=== PATIENT | male | born 1955 | race Two or more races ===

== ENCOUNTER 2018-08-13 20:53 | Inpatient (IN) | payer OTHER ==
[~2018-08-13] VITALS: Ht 167.6 cm; Wt 68.0 kg
[2018-08-13 20:56] VITALS: Ht 167.6 cm; Wt 68.0 kg
--- NOTE | 2018-08-13 21:06 | NUR ---
PT WHEELED TO ED BED 5 AFTER IV START IN H7.
--- NOTE | 2018-08-13 21:09 | NUR ---
DR QUIÑONES MADE AWARE THAT PT IS IN BED 5
--- NOTE | 2018-08-13 21:12 | NUR ---
PT C/O SLURRED SPEECH SINCE 1600. PT REPORTS THAT STARTING AROUND 1600, HIS MOUTH BECAME DRY, HE STARTED FEELING WEAK AND OFF-BALANCED. HE STS THAT HE WASTRYING TO SAY "LISA", AND COULD NOT SAY IT. AT BEDSIDE. STS THAT SHE CALL PT AT 1800, AND NOTICED THAT HIS SPEECH WAS SLURRED. BECAME WORRIED, GIVEN HX OF STROKE X2. STS THAT SHE CAME HOME TO TAKE HIM TO HOSPITAL. PT STS THAT HE FEELS THAT HIS SPEECH IS GETTING BETTER. NO PRONATOR DRIFT NOTED. SYMMETRICAL SMILE AND EYE BROW RAISE NOTED. FULL STRENGTH IN ALL 4 EXTREMETIES NOTED. PT REPORTS "A LITTLE" DECREASED SENSATION IN LEFT EXTREMETIES. STRONG PULSES IN ALL 4 EXTREMETIES NOTED. PT PLACED ON BOAT PULLER AND PULSE OX. RESPS E/U. AT BEDSIDE. CT NOTIFIED.
--- NOTE | 2018-08-13 21:25 | NUR ---
PT TAKEN TO CT VIA KARLA
--- NOTE | 2018-08-13 21:46 | NUR ---
X-RAY AT BEDSIDE
[2018-08-13 21:50] LABS: BASOPHIL % 0.5 % (0-2); PLATELET COUNT 188 x10^3mcL (130-400); RED CELL DISTRIBUTION WIDTH 13.5 % (11.5-14.5)
--- NOTE | 2018-08-13 21:51 | NUR ---
PT MEDICATED PER MD ORDER
[2018-08-13 21:57] LABS: CALCIUM 9.6 mg/dL (8.5-10.1); CARBON DIOXIDE 28.7 mmol/L (21-32); CHLORIDE SERUM 105 mmol/L (98-107); CREATININE SERUM 1.2 mg/dL (0.7-1.3); GFR1 > 60 mL/min; GLUCOSE SERUM 242 mg/dL (74-106); SODIUM SERUM 143 mmol/L (136-145)
[2018-08-13 22:03] LABS: ALKALINE PHOSPHATASE 115 U/L (46-116); ALT/SGPT 49 U/L (16-63); AST/SGOT 17 U/L (15-37); BILIRUBIN TOTAL 0.31 mg/dL (0.20-1.00); TOTAL PROTEIN, SERUM 6.3 g/dL (6.4-8.2)
[2018-08-13 22:04] LABS: ALBUMIN 3.3 g/dL (3.4-5.0)
[2018-08-13 22:08] LABS: microscopic required? NO
--- NOTE | 2018-08-13 22:10 | NUR ---
MEDICATION ADMINISTERED PER MD ORDER
[2018-08-13 22:24] LABS: UA SPECIFIC GRAVITY <=1.005 (1.005-1.035); urine erythrocyte NEGATIVE (NEGATIVE)
--- NOTE | 2018-08-13 22:41 | NUR ---
PT A&O X4, LAYING IN POSITION OF COMFORT. PT SPEAKING IN FULL SENTENCES, NO SLURRED SPEECH NOTED. PT REPORTS FEELING "MUCH BETTER." RESPS E/U. BED IN LOW AND LOCKED POSITION, 2 BED RAILS UP, CALL LIGHT W/IN REACH. SPOUSE AT BEDSIDE. AWAITING RESULTS.
--- NOTE | 2018-08-13 22:44 | NUR ---
PT TAKEN TO CT VIA KARLA
--- NOTE | 2018-08-13 23:10 | NUR ---
MEDICATION GIVEN PER MD ORDER
--- NOTE | 2018-08-13 23:32 | NUR ---
PT RESTING IN A POSITION OF COMFORT AT THIS TIME. AOX4, RESP EVEN AN DUNLABORED, NO ACUTE DISTRESS NOTED. PT REMAINS ON FULL CM.
[2018-08-14] VITALS (8 sets, daily range): BP systolic 142–194; BP diastolic 64–88
--- NOTE | 2018-08-14 00:06 | NUR ---
MEDICATION ADMINISTERED PER MD ORDER
--- NOTE | 2018-08-14 00:25 | NUR ---
PT AWAKE AND ALERT, LAYING IN POSITION OF COMFORT. PT REPORTS FEELING "MUCH BETTER." 2 BED RAILS UP, BED IN LOW AND LOCKED POSITION. RESPS E/U, NAD NOTED.
[2018-08-14] MEDS ORDERED: ASPIR 8181 MG PO (00:51)
[2018-08-14] MEDS ORDERED: CATAPRES0.1 MG PO (00:52)
[2018-08-14] MEDS ORDERED: METFORMIN HYDR500 M1 PO (00:52)
--- NOTE | 2018-08-14 01:51 | NUR ---
MEDICATION ADMINISTERED PER MD ORDER
--- NOTE | 2018-08-14 01:56 | NUR ---
PT AWAKE AND ALERT, LAYING IN POSITION OF COMFORT. RESPS E/U, NAD NOTED AT THIS TIME. CALL LIGHT W/IN REACH, SON AT BEDSIDE. AWAITING RM ASSIGNMENT.
--- NOTE | 2018-08-14 01:56 | NUR ---
PT AMBULATED TO RESTROOM W/ STEADY GAIT
[2018-08-14 02:05] LABS: CHOLESTEROL/HDL RATIO 3.7; PHOSPHOROUS 4.7 mg/dL (2.5-4.9)
[2018-08-14 02:15] LABS: FREE T4 1.8 ng/dL (0.76-1.46); FREE THYROXINE INDEX 4.7 ug/dL (1.4-4.5); T3 TOTAL 1.68 ng/mL; T4(THYROXINE) 11.7 ug/dL (4.7-13.3)
--- NOTE | 2018-08-14 02:15 | NUR ---
RECEIVED REPORT FROM HARRIETT MATHEWS FROM ED. ALL QUESTIONS AND CONCERNS ADDRESSED.
--- NOTE | 2018-08-14 02:16 | NUR ---
REPORT GIVEN TO STEPH LORENZANA
--- NOTE | 2018-08-14 02:26 | NUR ---
PT ARRIVED TO UNIT TO ROOM 204 BED B
--- NOTE | 2018-08-14 02:30 | NUR ---
PT IN RM 204 BED B. PT IS A/O X4, SPEECH IS CLEAR AND FOLLOWS COMMANDS. EYES OPEN SPONTANEOUSLY AND PUPILS REACT BRISK TO LIGHT. CHEST RISE AND FALL EQUAL AND UNLABORED AND LS CLEAR BILATERALLY. PT IS ON RA SATTING 97%. PT IS ABLE TO AMBULATED WITH MINIMAL ASSIST. 20G IV TO RT AC, PATENT AND FLUSHING WELL. FAMILY AT BEDSIDE AND GIVEN UPDATE ON PLAN OF CARE. BED LEFT IN THE LOWEST POSITION AND CALL LIGHT LEFT WITHIN REACH.
--- NOTE | 2018-08-14 05:50 | NUR ---
PT BP 204/[address] WATSON AWARE, ORDER TO GIVE 0900 CLONIDINE NOW
--- NOTE | 2018-08-14 07:06 | NUR ---
RECEIVED REPORT FROM RADHA LORENZANA. PT RESTING COMFORTABLY IN BED WITH AT BEDSIDE. SALINE LOCK TO RAC IS PATENT AND INTACT. NO REDNESS OR PAIN. TELE # [address] PT DENIES CHEST PAIN. PT ON ROOM AIR. NO C/O SOB AND NO DISTRESS NOTED. ALL QUESTIONS AND CONCERNS ADDRESSED.
--- NOTE | 2018-08-14 08:42 | NUR ---
IN TO SEE PATIENT AND ADMINISTER MEDICATION. METFORMIN HELD. PT HAD CT WITH CONTRAST. PT RESTING COMFORTABLY IN BED WITH AT BEDSIDE. ALL NEEDS MET.
[2018-08-14 09:07] LABS: AMPHETAMINE QUAL UR NONE DETECTED (See below)
--- NOTE | 2018-08-14 10:31 | NUR ---
TELE NEURO INITIATED AT THIS TIME. SPOKE WITH ALI AND PROVIDED ALL INFO REQUESTED. ATTENDING NURSE KIMBERLI MADE AWARE.
--- NOTE | 2018-08-14 10:34 | NUR ---
RECEIVED CALL FROM TELE NEURO REP REQUESTING H&P BE FAXED.
--- NOTE | 2018-08-14 10:35 | NUR ---
CONFIRMED OK TO SEND H&P TO TELE NEURO WITH PRINCIPAL DATABASE DEVELOPERHARRIETT RAMÍREZ. H&P SENT WITH COVERSHEET AND FACESHEET. CONFIRMATION MESSAGE RECEIVED.
--- NOTE | 2018-08-14 10:57 | NUR ---
TELE NEURO CONSULT COMPLETED WITH DR CHRIS DUNBAR. DISCUSSED POSSIBILITIES. STATED THAT CT SCAN REVEALED OLD STROKE AND THAT 1. HIGH BP MAY CAUSE OLD STROKE TO HAVE SYMPTOMS RESURFACE. OR 2. THIS MAY BE AN NEW STROKE AND SHE WOULD LIKE PT TO HAVE MRI IN ORDER TO FURTHER ASSESS. ALL SYSTEMS ASSESSED BY DOCTOR INCLUDING HOME MEDS AND MEDICATIONS GIVEN THIS HOSPITAL VISIT. DR LICONA SEND RECCOMENDATIONS. UPON COMPLETION DR PAREDES CAME IN AND WAS NOTIFIED OF DR DUNBAR RECCOMENDATION.
--- NOTE | 2018-08-14 11:49 | NUR ---
PATIENT HAVING ECHO NOW.
--- NOTE | 2018-08-14 11:55 | NUR ---
DIABETIC EDUCATION NURSE BIA IN TO SPEAK WITH PATIENT AND . ALL QUESTIONS AND CONCERNS ADDRESSED.
--- NOTE | 2018-08-14 14:38 | NUR ---
IN TO SEE PATIENT AND ASSESS NEEDS AFTER LUNCH. PT STATES HE IS FEELING WEEL AND WOULD LIKE TO GO HOME. DISCUSSED MRI AND AND WILL FOLLOW UP WITH RADIOLOGY TO SEE IF IT IS BEING COMPLETED TODAY. IF NOT PAT STATED THAT HE WOULD LIKE TO BE DISCHARGED AND HAVE MRI DONE OUTPATIENT. WILL NOTIFY DR PAREDES.
--- NOTE | 2018-08-14 15:26 | NUR ---
SPOKE WITH DR PAREDES TO NOTIFY THAT PT WAS INQUIRING ABOUT BEING DISCHARGED AND HAVING MRI DONE OUTPATIENT VS INPATIENT TOMORROW. DR PAREDES REQUESTED THAT I DISCUSS BOTH OPTIONS WITH PATIENT AND CALL HER BACK. PATIENT DISCUSING BOTH OPTIONS WITH HIS AND WILL GET BACK TO ME.
--- NOTE | 2018-08-14 16:08 | NUR ---
PT TO STAY IN THE HOSPITAL AND HAVE MRI INPATIENT TOMORROW. DR PAREDES NOTIFIED.
--- NOTE | 2018-08-14 16:26 | NUR ---
PAGE GATED DR PAREDES TO NOTIFY OF PT BP 176/77 AND PT ONLY HAS CLONIDINE FOR SBP <180.
--- NOTE | 2018-08-14 17:46 | NUR ---
SPOKE WITH DR PAREDES AND NOTIFIED OF PATIENT BP 176/77 WITH ONLY CLONIDINE FOR SBP <180. DR PAREDES STATED DO NOT GIVE CLONIDINE I WILL PLACE A NEW ORDER. AWAITING ORDER.
--- NOTE | 2018-08-14 19:25 | NUR ---
RECIEVED PT IN BED FROM DAY NURSE KIMBERLI, PT ASSESSED AT THIS TIME, HAS NO ACUTE DISTRESS AT THIS TIME, PT IS A/0X4 NO COMPLAINTS OF ROY OR DIZZINESS, PERRL, PT HAS NO COMLAINTS OF CHEST PAIN OR SOB, IV TO THE RAC SALINE LOCKED, TELE [address] NSR, SAFETY PRECAUTIONS IN PLACE, WILL CONTINUE TO MONITOR
--- NOTE | 2018-08-14 19:30 | NUR ---
REPORT GIVEN TO ELENA LORENZANA. PT RESTING COMFORTABLY IN BED NO DISTRESS NOTED. PT TO HAVE MRI TOMORROW. ALL QUESTIONS AND CONCERNS ADDRESSED. ALL CARES ENDORSED.
--- NOTE | 2018-08-14 20:01 | NUR ---
PT BP 194/84, CONTACTED DR REED, SAID TO GIVE THE LISINOPRIL AND PRN CLONADINE.
--- NOTE | 2018-08-14 21:18 | NUR ---
SPOKE TO BILLY OLIVER AND INQUIRED ABOUT MRI SCHEDULE TOMORROW 08/15, CHECKED IF THEY AREA AWARE AND IF TIMERS INSPECTOR IS INFORMED ABOUT IT. SHE CALLED MARY MORALES AND HE IS AWARE AND WILL BE HERE TOMORROW AROUNBD 1PM. WILL RELAY THIS TO CN.
--- NOTE | 2018-08-14 22:30 | NUR ---
PT RESTING COMFOTTABLY IN BED PLAYING ON PHONE, NO SIGNS OF ACUTE DISTRESS NOTED AT THIS TIME, SAFETY PRECAUTIONS IN PLACE WILL CONTINUE TO MONITOR
[2018-08-15] VITALS (7 sets, daily range): BP systolic 158–198; BP diastolic 69–92
--- NOTE | 2018-08-15 01:42 | NUR ---
PT A/0X4 NO COMPLAINTS OF ROY OR DIZZINESS, PERRL, NO SLURRED SPEACH, FOLLOWS COMMANDS, NO FACIAL ASYMETRY OR DROOP, SAFETY PRECAUTIONS IN PLACE, WILL CONTINUE TO MONITOR
--- NOTE | 2018-08-15 03:16 | NUR ---
CHECKED PT BLOOD PRESSURE DURING ROUNDS, WAS 168/74, CONTACTED DR REED, NO NEW ORDERS AT THIS TIME. WILL CONTINUE TO MONITOR
--- NOTE | 2018-08-15 05:12 | NUR ---
PT SLEPT THROUGH MOST OF THE NIGHT, THE PT REMAINED A/0X4 THROUGH SHIFT, PERRL DURING NEURO CHECKS, HAD NO COMPLAINTS OF ROY, DIZZINESS, SLURRING OF SPEECH, OR FACIAL DROOP/ASYMETRY. PT HAD NO EPISODES OF PAIN. SAFETY PRECAUTIONS WERE MAINTAINED THROUGH SHIFT, WILL CONTINUE TO MONITOR AND ENDORSE CARE TO ONCOMING DAY SHIFT RN
[2018-08-15 06:18] LABS: BASOPHIL % 0.3 % (0-2); PLATELET COUNT 187 x10^3mcL (130-400); RED CELL DISTRIBUTION WIDTH 13.2 % (11.5-14.5)
[2018-08-15 06:30] LABS: CALCIUM 9.4 mg/dL (8.5-10.1); CARBON DIOXIDE 25.9 mmol/L (21-32); CHLORIDE SERUM 106 mmol/L (98-107); CREATININE SERUM 1.2 mg/dL (0.7-1.3); GFR1 > 60 mL/min; GLUCOSE SERUM 148 mg/dL (74-106); MAGNESIUM 1.7 mg/dL (1.8-2.4); PHOSPHOROUS 4.1 mg/dL (2.5-4.9); SODIUM SERUM 135 mmol/L (136-145)
--- NOTE | 2018-08-15 07:20 | NUR ---
RECEIVED PT. IN BED A/A/O X4. NO FACIAL DROOPING NOTED. SPEECH IS CLEAR. NO SOB, NO N/V NOTED. PT. DENIES ANY PAIN AT THIS TIME. IV SITE NOTED TO R AC. SCD TO BLE MAINTAINED. BED IN LOW POS., CALL LIGHT WITHIN REACH. SIDE RAILS UP X3.
[2018-08-15] MEDS ORDERED: ASPIR 8181 MG PO (12:37)
[2018-08-15] MEDS ORDERED: CLOPIDOGREL75 M1 PO (12:37)
[2018-08-15] MEDS ORDERED: ATORVASTATIN CA40 M1 PO (12:37)
[2018-08-15] MEDS ORDERED: COR6 PO (12:38)
[2018-08-15] MEDS ORDERED: ZES20 PO (12:38)
[2018-08-15] MEDS ORDERED: ECO81 PO (12:38)
[2018-08-15] MEDS ORDERED: NOR5 PO (12:38)
--- NOTE | 2018-08-15 14:44 | NUR ---
B/P= 198/92, P= 85. DR. DALLAS PAGED FOR THE ABOVE B/P.
--- NOTE | 2018-08-15 15:08 | NUR ---
DR. DALLAS RETURNED PHONE CALL. ORDER FOR IV HYDRALAZINE PRN FOR ELEVATED B/P RECEIVED.
--- NOTE | 2018-08-15 15:50 | NUR ---
PT. IS BEING TAKEN TO MRI DEPT. FOR MRI OF BRAIN.
--- NOTE | 2018-08-15 16:30 | NUR ---
PT. RETURNED TO ROOM FROM MRI DEPT.
--- NOTE | 2018-08-15 17:34 | NUR ---
DR PAREDES INFORMED ABOUT MRI BRAIN RESULT. SHE SAID THAT SHE WILL TEXT DR DALLAS. PER DR PAERDES PATIENT IS STABLE TO BE DISCHARGED HOME AND FOLLOW UP WITH NEUROLOGY OUTPATIENT. ATTENDING NURSE ROBINA MADE AWARE.
--- NOTE | 2018-08-15 18:20 | NUR ---
REPORTED B/P (161/69) , P= [address] PAREDES STATED PT. IS STABLE FOR DISCHARGE.
--- NOTE | 2018-08-15 18:30 | NUR ---
D/C HOME INSTRUCTIONS GIVEN TO PT. WHO VERBALIZED UNDERSTANDING OF INSTRUCTIONS. IV H/L TO R AC REMOVED. PRESCRIPTIONS GIVEN. TELE. MONITOR #26 REMOVED AND RETURNED TO TELE. MONITOR STATION.
--- NOTE | 2018-08-15 19:03 | NUR ---
PT. IS BEING DISCHARGED IN STABLE CONDITION VIA WHEELCHAIR. ALL BELONGINGS SENT HOME WITH PT. UPON DISCHARGE.
== END 2018-08-15 20:25 | disposition home or self-care (01) | DRG 69 ==
LOC: ED 20:53 → DU 08-14 00:19
PROVIDERS: Emergency Medicine; ADMIT Internal Medicine
DX: G45.9 Transient cerebral ischemic attack, unspecified (principal); I16.1 Hypertensive emergency; E11.65 Type 2 diabetes mellitus with hyperglycemia; I10 Essential (primary) hypertension; Z79.84 Long term (current) use of oral hypoglycemic drugs; Z86.73 Personal history of transient ischemic attack (TIA), and cerebral infarction without residual deficits
CPT/HCPCS: 82962; 83880; 84439; A9577; J0360; J2405; J3010; J3490; Q9967